=== PATIENT | female | born 1980 | race Native Hawaiian/Other Pacific Islander ===

== ENCOUNTER 2016-07-18 14:32 | Emergency (ER) | payer OTHER, BC ==
[2016-07-18 14:40] VITALS: RESP 18; TEMP 98.1; O2SAT 100
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
--- NOTE | 2016-07-18 16:06 | US ---
OB , limited Indication: Bleeding Comparison: None available Technique: Real-time ultrasound was performed through the pelvis. Findings: There is a single living fetus in breech presentation. Posterior placenta. The placenta is not previa. There are no adnexal masses or cysts evident. Cervix length measures approximately 3.8 cm. Measurements and calculations: Fetus has a composite sonographic age of 17 weeks 0 days. This calculation is based on the biparietal diameter, head circumference, abdominal circumference, and femur length. Estimated heart rate 133.9 beats per min. Impression: Single living fetus with a composite sonographic age of 17 weeks 0 days. Estimated heart rate 133.9 beats per min. The study was performed for the emergent evaluation of bleeding, and the whole anatomic survey of the fetus was not performed. This should be performed on an outpatient elective basis as clinically warranted.
[2016-07-18 16:41] VITALS: BP 106/64; PULSE 72
== END 2016-07-18 16:30 | disposition home or self-care (01) ==
LOC: C.ER 14:32
DX: O9A.212 Injury, poisoning and certain other consequences of external causes complicating pregnancy, second trimester (principal); R10.30 Lower abdominal pain, unspecified; Z3A.17 17 weeks gestation of pregnancy

== ENCOUNTER 2016-12-14 05:23 | Inpatient (IN) | payer BC, OTHER ==
[2016-12-14 05:34] VITALS: BMI 28.5
[2016-12-14] MEDS ORDERED: Lactated Ringer's 1,000 ML IV SCH (05:45)
[2016-12-14 06:01] LABS: BASO % 0.2 % (0.0-2.0); EOS # 0.1 K/uL (0.0-0.7); EOS % 1.4 % (0.0-4.0); HEMATOCRIT 41.3 % (34.0-47.0); LYMPH # 2.8 K/uL (1.0-4.3); LYMPH % 30.3 % (20.0-40.0); MEAN CELL VOLUME 86.3 fL (81.0-99.0); MEAN CORPUSCULAR HGB CONC 34.7 g/dL (33.0-37.0); MEAN PLATELET VOLUME 10.6 fL (7.2-11.7); MONO # 0.8 K/uL (0.0-0.8); MONO % 8.1 % (0.0-10.0); RED CELL DISTRIBUTION WIDTH 14.3 % (11.5-14.5); WHITE BLOOD COUNT 9.3 K/uL (4.8-10.8)
[2016-12-14 06:03] LABS: RBC URINE 1 /hpf (0-3); URINE BACTERIA OCC (<OCC); URINE BILIRUBIN NEGATIVE (NEGATIVE); URINE BLOOD NEGATIVE (NEGATIVE); URINE COLOR Yellow (YELLOW); URINE GLUCOSE (UA) NORMAL (Normal); URINE KETONE NEGATIVE (NEGATIVE); URINE LEUKOCYTE ESTERASE NEG Leu/uL (Negative); URINE PROTEIN NEGATIVE (NEGATIVE); URINE UROBILINOGEN NORMAL mg/dL (0.2-1.0); WBC URINE 1 /hpf (0-5)
[2016-12-14] MEDS ORDERED: Sodium Citrate/Citric Acid 15 ml Sol PO ONE (06:06)
--- NOTE | 2016-12-14 06:06 | OBHP ---
Datetime: 12/14/2016 06:01 IP Adm Impression: Term, intrauterine ; Active labor IP Admit Plan: Admit to unit; Initiate Section protocol Admit Comment, IP Provider: Provate patient of DR Martins chief complaint-contractions HPI 36 y/o at 39 wga here with c/o conttractions.denies vaginal bleeding or loss of fluid course -ama, declined amnio PMH denies PSH csectionx2 OBGYN HX ; Csectionx2 Social hx denies tobacco,alcohol or illicit drug use Exam se eexam section A/P 36 y/o at 39 wga with previous csection in labor -admit -see orders Pelvic Type - PN: Adequate Extremities - PN: Normal Abdomen - PN: Normal Back - PN: Normal Lungs - PN: Normal Heart - PN: Normal Neurologic - PN: Normal General - PN: Normal Gestation - Est Wks by US: 39.0 IP Hx Assessment: The History has been Reviewed and is Current EGA AdmitDate IP: 39.0 Vital Signs Provider: Reviewed; Within Normal Limits IP Chief Complaint: Uterine contractions FHR Category Provider Fetus A: Category I Dilatation, Provider: 2 Effacement, Provider: 70 Station, Provider: -2 DTRs - PN: Normal
[2016-12-14] MEDS ORDERED: cefOXitin IV 2 gm in Dextrose 2 GM/50 ML BAG IVPB ONE (06:08)
[2016-12-14 06:17] LABS: CHLORIDE 105 mmol/L (98-107); POTASSIUM 3.3 mmol/L (3.6-5.2); SODIUM 134 mmol/L (132-148)
--- NOTE | 2016-12-14 06:19 | OBADHP ---
Datetime: 12/14/2016 06:01 IP Chief Complaint Other: pregvious c//s Admit Comment, IP Provider: Provate patient of DR Martins chief complaint-contractions HPI 36 y/o at 39 wga here with c/o conttractions.denies vaginal bleeding or loss of fluid course -ama, declined amnio PMH denies PSH csectionx2 OBGYN HX ; Csectionx2 Social hx denies tobacco,alcohol or illicit drug use Exam se eexam section A/P 36 y/o at 39 wga with previous csection in labor -admit -see orders Dr Martins agrees with qabove Pelvic Type - PN: Adequate Extremities - PN: Normal Abdomen - PN: Normal Back - PN: Normal Lungs - PN: Normal Heart - PN: Normal Neurologic - PN: Normal General - PN: Normal Contraction Comments Provider: irrg Comments, ACOG Physical Exam: gravid,non tender extt no edema,no calf ten Gestation - Est Wks by US: 39.0 IP Hx Assessment: The History has been Reviewed and is Current Vital Signs Provider: Reviewed; Within Normal Limits IP Chief Complaint: Uterine contractions FHR Category Provider Fetus A: Category I Dilatation, Provider: 2 Effacement, Provider: 70 Station, Provider: -2 DTRs - PN: Normal EGA AdmitDate IP: 39.0 IP Adm Impression: Term, intrauterine ; Active labor IP Admit Plan: Admit to unit; Initiate Section protocol
[2016-12-14 06:20] LABS: BLOOD UREA NITROGEN 8 mg/dL (7-17); CARBON DIOXIDE 19 mmol/L (22-30); GFR AFRICAN-AMERICAN > 60
[2016-12-14 06:21] LABS: CALCIUM 10.1 mg/dl (8.6-10.4); GLUCOSE,RANDOM 77 mg/dL (65-105)
[2016-12-14] MEDS ORDERED: Morphine 1 mg/ml preservative-free Inj(Duramorph) ONE (06:23)
[2016-12-14] MEDS ORDERED: Oxytocin 10 Units/ml Inj ONE (06:47)
[2016-12-14] MEDS ORDERED: DiphenhydrAMINE 50 mg/ml Inj IVP PRN (07:26)
[2016-12-14] MEDS ORDERED: Naloxone 0.4 mg/ml Inj (Adult) IVP PRN (07:26)
[2016-12-14] MEDS ORDERED: Oxycodone/Acetaminophen 5/325 mg Tab PO PRN (07:31)
--- NOTE | 2016-12-14 08:02 | OBDS ---
DELIVERY PERSONNEL Delivery Doctor: Bang Martins MD Billet Sawyer: Cherrie Stoll RN Anesthesiologist: Nely Smalls MD MATERNAL INFORMATION Delivery Anesthesia: Spinal Medications in Delivery: pitocin 20 units, methergin 0.2 mcg Placenta Cultured: No Maternal Complications: None RN Comments: repeat CS to a live baby girl with 10/27 Provider Comments: baby delverd in [place]. endometrium clean no com 10/27 LABOR SUMMARY EDC: 12/21/2016 00:00 No. Babies in Womb: 1 Attempted: No Labor Anesthesia: None LABOR INFORMATION Oxytocin: N/A Group B Beta Strep: Negative MEMBRANES Membranes Rupture Method: Artificial Rupture of Membranes: 12/14/2016 06:40 Length of Rupture (hrs): 0.00 Amniotic Fluid Color: Clear Amniotic Fluid Amount: Moderate Amniotic Fluid Odor: Normal STAGES OF LABOR Stage 3 hrs: 0 Stage 3 min: 1 CSECTION DELIVERY Primary Indication: Repeat Elective CSection Urgency: N/A CSection Incidence: Repeat Labor: No Labor Elective: Elective CSection Incision: Lower Uterine Transverse BABY A INFORMATION Infant Delivery Date/Time: 12/14/2016 06:40 Method of Delivery: Born in Route : No : N/A Forceps: N/A Vacuum Extraction: N/A Shoulder Dystocia : No SHOULDER DYSTOCIA BABY A Delivery Date/Time: 12/14/2016 06:40 PRESENTATION/POSITION BABY A Presentation: Cephalic Cephalic Presentation: Vertex Vertex Position: Left Occipital Anterior Breech Presentation: N/A PLACENTA INFORMATION BABY A Placenta Delivery Time : 12/14/2016 06:41 Placenta Method of Delivery: Manual Removal Placenta Status: Delivered SCORES BABY A Heart Rate 1 min: >100 bpm Resp Effort 1 min: Good Cry Reflex Irritability 1 min: Cough or Sneeze or Pulls Away Muscle Tone 1 min: Active Motion Color 1 min: Body [place], Extremities Blue SCORE 1 MIN: 9 Heart Rate 5 min: >100 bpm Resp Effort 5 min: Good Cry Reflex Irritability 5 min: Cough or Sneeze or Pulls Away Muscle Tone 5 min: Active Motion Color 5 min: Body [place], Extremities Blue SCORE 5 MIN: 9 INFANT INFORMATION BABY A Gestational Age at Delivery: 39.0 Gestational Status: Term Outcome : Liveborn Infant Condition : Stable Sex: Female IDENTIFICATION/MEDS BABY A ID Band Number: [id number] ID Band Location: Left Leg; Left Arm Sensor Applied: Yes Sensor Number: [id number] Sensor Location : Cord Clamp WEIGHT/LENGTH BABY A Birthweight (gms): 2955 Infant Weight (lb): 6 Weight (oz): 8 Length Inches: 19.00 Length cms: 48.3 CORD INFORMATION BABY A No. Cord Vessels: 3 Nuchal Cord : N/A Cord Blood Taken: Yes Infant Suction: None ASSESSMENT BABY A Complications: None Physical Findings at Delivery: Within Normal Limits Respirations: Appears Normal Varnish Mixer/ALS Called : No Infant Care By: Dr. Gannon Transferred To: Remains with Mother
--- NOTE | 2016-12-14 08:06 | PCM.SURG1 ---
Surgeon's Initial Post Op Note - Surgeon's Notes Surgeon: dr matias Corduroy Brusher Operator: dr dubois Anesthesia Administered By: dr gaytan Pre-Operative Diagnosis: 36 yr at 39weeks gdma1/preious c/s/iugr/abdominal pain Operative Findings: se the op report Post-Operative Diagnosis: same Operation Performed: repeat section Specimen/Specimens Removed: cord gas. cord blood. placente Estimated Blood Loss: EBL {In ML}: 700 Blood Products Given: N/A Drains Used: No Drains Post-Op Condition: Good Date of Surgery/Procedure: 12/14/16 Time of Surgery/Procedure: 06:50
[2016-12-14] MEDS: Simethicone 80 mg Chewtab PO SCH ×3 (10:34→21:55)
--- NOTE | 2016-12-14 18:48 | OP ---
PREOPERATIVE DIAGNOSES: A 36-year-old 3, para 2, at 39 weeks, intrauterine growth restriction; gestational diabetes, abnormal uterine bleeding. POSTOPERATIVE DIAGNOSES: A 36-year-old 3, para 2, at 39 weeks ,intrauterine growth restriction; gestational diabetes, abnormal uterine bleeding. PROCEDURE: Repeat section. SURGEON: Bang Martins MD LAMINATION OPERATOR: Dr. Mike Barragan, who was present throughout the surgery for retraction, pushing at the time of the delivery. TYPE OF ANESTHESIA: Spinal. ANESTHESIA ADMINISTERED BY: . ESTIMATED BLOOD LOSS: 700 mL. COMPLICATIONS: None. DESCRIPTION OF PROCEDURE: After informed consent was obtained, the patient was brought to the operating room and placed on table where spinal anesthesia was given. When anesthesia was found to be sufficient, the patient was prepped and draped in normal sterile fashion. At the site of 2 cm above the pubic bone, a skin incision was made with a knife, the subcutaneous cut with a Bovie. The fascia was then excised on both the sides using curved Robins scissors. The fascia was from the site of the umbilicus and then at the side of the pubic bone. Rectus muscle was lifted up with Allis and it was cut with the knife. The rectus muscle was after it was cut. Bladder blade was placed. Bladder flap was created. Bladder was released. Lower uterine segment incision was made with a knife, it was extended using curved Robins scissors. Baby was delivered in a VELVET direct occipitoposterior position. Cord was clamped and cut. Baby was handed to the awaiting wind up operator. Cord blood was taken, cord gas was sent. Placenta delivered manually and sent to the pathology. Uterus was exteriorized and cleared of all clots and debris. Uterus was boggy, extra Pitocin was given, lot of massage was done. After that, uterine incision was closed using #1 Vicryl in running interlocking fashion, second layer was closed with the same stitch and then the gutters were cleared of all the clots and debris. Cul-de-sac was cleared of all the clots and debris. Uterus was returned back to abdominal cavity. Incision was looked back and it was hemostatic. Peritoneum was closed using 2-0 Vicryl in running interlocking fashion. Muscle was closed using 2-0 Vicryl in running interlocking fashion. The fascia was closed using #1 Vicryl in running interlocking fashion. Subcutaneous tissue was closed with 0 Vicryl in interrupted fashion. Skin was closed using 3-0 Monocryl straight needle. The patient tolerated the procedure well. Lap, sponge, and instrument counts were correct x2. Bang Martins MD
--- NOTE | 2016-12-15 07:01 | OBPPN ---
Datetime: 12/15/2016 06:52 PP Pain Prov: Within normal limits PP Nausea Prov: Denies PP Flatus Prov: No PP BM Prov: No PP Heart Prov: Normal PP Lungs Prov: Normal PP Lochia Prov: Normal PP Extremities Prov: Normal PP C/S Incision Prov: Normal PP Comments Phys Exam Prov: fudus below umblicus ext mild edema,no calf ten PP Impression Prov: Normal progression PP Plan Prov: Continue present management PP Progress Note Prov: pt was seen at bed side, pain undr control with pain meds,no n/v, tolerating deit,min lochia, flatus_ pod#1 s/p c/s cbc reg deit cont pain management con post op care encourage ambultion Vital Signs Provider PP: Reviewed; Within Normal Limits
[2016-12-15] MEDS ORDERED: Bisacodyl 5mg EC Tab PO ONE ×2 (07:32→09:15)
[2016-12-15 08:08] LABS: BASO % 0.3 % (0.0-2.0); EOS # 0.1 K/uL (0.0-0.7); EOS % 0.9 % (0.0-4.0); HEMATOCRIT 39.8 % (34.0-47.0); LYMPH # 2.6 K/uL (1.0-4.3); LYMPH % 18.8 % (20.0-40.0); MEAN CELL VOLUME 87.6 fL (81.0-99.0); MEAN CORPUSCULAR HEMOGLOBIN 29.5 pg (27.0-31.0); MEAN CORPUSCULAR HGB CONC 33.7 g/dL (33.0-37.0); MEAN PLATELET VOLUME 10.8 fL (7.2-11.7); MONO # 0.9 K/uL (0.0-0.8); MONO % 6.5 % (0.0-10.0); RED CELL DISTRIBUTION WIDTH 14.6 % (11.5-14.5); WHITE BLOOD COUNT 13.9 K/uL (4.8-10.8)
[2016-12-15] MEDS: Simethicone 80 mg Chewtab PO SCH ×4 (09:08→21:04)
[2016-12-15] MEDS: Oxycodone/Acetaminophen 5/325 mg Tab PO PRN ×2 (09:13→17:23)
[2016-12-16] MEDS: Simethicone 80 mg Chewtab PO SCH ×4 (09:03→22:46)
[2016-12-17] MEDS ORDERED: Influenza Vaccine 60 mcg/0.5 mL SYR (4YR UP) IM ONE (07:42)
[2016-12-17] MEDS: Simethicone 80 mg Chewtab PO SCH (09:29)
--- NOTE | 2016-12-17 14:26 | OBDCSUM ---
Datetime: 12/17/2016 07:47 Discharged to, Provider: Home Follow up at, Provider: Dr. Maritns Disch Instr Activity: Normal activity; May be up to bathroom; May be up for meals; May Shower Disch Instr Diet: Regular Discharge Instructions, Provider: Routine instructions given Discharge Diagnosis, Provider: Term Delivered Discharge Time: 12/17/2016 12:00 Follow up in weeks, Provider: 2 weeks Disch Referrals: None Disch Activity Restrictions: No exercising; No lifting; Minimize stair-climbing; No sexual activity; Nothing in vagina - [place], tampons, douche Discharge Comment, Provider: Pelvic rest for 6 weeks Continue to hydrate and ambulate No heavy lifting for 6 weeks OTC motrin and tylenol for pain control Discharge Diagnosis Prov Other: at 39w0d s/p RLTCD Contraception after Delivery: Undecided
[2016-12-17 19:42] VITALS: BP 99/60; PULSE 57; RESP 18; TEMP 97.5; O2SAT 97
== END 2016-12-17 12:30 | disposition home or self-care (01) | DRG 765 ==
LOC: C.EROB 05:23 → C.4D 05:45 → C.4M 11:24
PROVIDERS: ADMIT Obstetrics & Gynecology; ATTEND Obstetrics & Gynecology
PROC: 10D00Z1 Extraction of Products of Conception, Low, Open Approach (ICD-10-PCS; principal; 2016-12-14)
DX: O34.211 Maternal care for low transverse scar from previous cesarean delivery (principal); O36.5930 Maternal care for other known or suspected poor fetal growth, third trimester, not applicable or unspecified; O24.420 Gestational diabetes mellitus in childbirth, diet controlled; N93.9 Abnormal uterine and vaginal bleeding, unspecified; Z3A.39 39 weeks gestation of pregnancy; Z37.0 Single live birth